=== PATIENT | female | born 1985 | race Caucasian/White ===

== ENCOUNTER 2016-09-16 21:55 | Emergency (ER) | payer OTHER ==
[~2016-09-16 21:55] MED LIST: ATIVAN PO; BACTRIM DS TABL1 TA1 PO; BACTROBAN22 GM TP; EFFEXOR75 M1 PO; FLEXERIL PO; FLONASE 0.05% N16 GM; KLONOPIN PO; LIPITOR PO; LORTAB 5/500 TA1 TA1 PO; LORTAB 7.5-5001 TAB PO; MOBIC PO; MOBIC15 MG PO; NEURONTIN PO; NO MEDICATIONS; PHENERGAN DM1 ML PO; PREDNISONE PO; REMERON PO; VALTREX PO; ZITHROMAX PO; ZOVIRAX800 MG PO; ZYRTEC10 M2 PO
[2016-09-16 23:13] LABS: HEMATOCRIT 38.2 % (35.0-45.0); HEMOGLOBIN 13.2 gm/dL (12.0-16.0); MEAN CELL VOLUME 97.2 FL (83-96); MEAN CORPUSCULAR HEMOGLOBIN 33.6 PG (28-34); MEAN CORPUSCULAR HGB CONC 34.6 g/dL (30-36); RED BLOOD COUNT 3.93 X10e (3.90-5.30); RED CELL DISTRIBUTION WIDTH 12.2 % (11.0-15.5); WHITE BLOOD COUNT 9.2 X10e3 (4.0-10.5)
[2016-09-16 23:31] LABS: BUN/CREATININE RATIO 17.14; CALCIUM SERUM 9.1 mg/dL (8.4-10.2); CREATININE SERUM 0.7 mg/dL (0.6-1.4); GLOM FILT RATE Estimated 113.8 mL/min (>60); POTASSIUM 3.5 mmol/L (3.5-5.1)
== END 2016-09-17 00:10 | disposition home or self-care (01) ==
LOC: SED 21:55
PROVIDERS: Emergency Medicine
DX: H81.10 Benign paroxysmal vertigo, unspecified ear (principal); J45.909 Unspecified asthma, uncomplicated; F17.200 Nicotine dependence, unspecified, uncomplicated
CPT/HCPCS: 36415; 80048; 82947; 84703; 85027; 96361; 96374; 99284; J3360